=== PATIENT | male | born 1990 | race Two or more races ===

== ENCOUNTER 2017-06-14 02:10 | Emergency (ER) | payer SELFPAY ==
[2017-06-14 02:31] VITALS: BMI 33.5
[2017-06-14 02:33] VITALS: BP 161/69; PULSE 76; RESP 16; TEMP 98.7; O2SAT 100
--- NOTE | 2017-06-14 02:55 | ED PDOC ---
HPI: Psych/Substance Abuse Time Seen by Provider: 06/14/17 02:39 Chief Complaint (Nursing): Alcohol Ingestion Chief Complaint (Provider): ETOH History Per: Patient Additional Complaint(s): Patient is a 27 yo male, denies any PMH, was brought in for evaluation of unsteady gait after drinking alcohol. Pt denies any physical complaints. Past Medical History Reviewed: Nursing Documentation, Vital Signs Vital Signs: Last Vital Signs Temp 98.7 F 06/14/17 02:31 Pulse 76 06/14/17 02:31 Resp 16 06/14/17 02:31 BP 161/69 H 06/14/17 02:31 Pulse Ox 100 06/14/17 02:31 - Medical History PMH: No Chronic Diseases - Surgical History Surgical History: No Surg Hx - Family History Family History: States: No Known Family Hx - Living Arrangements Living Arrangements: With Family - Social History Current smoker - smoking cessation education provided: No Alcohol: Social Drugs: Denies - Allergies Allergies/Adverse Reactions: Allergies Allergy/AdvReac Type Severity Reaction Status Date / Time No Known Allergies Allergy Verified 06/14/17 02:30 Review of Systems ROS Statement: Except As Marked, All Systems Reviewed And Found Negative Physical Exam - Reviewed Nursing Documentation Reviewed: Yes Vital Signs Reviewed: Yes - Physical Exam Appears: Positive for: Well, Non-toxic, No Acute Distress Head Exam: Positive for: ATRAUMATIC, NORMAL INSPECTION, NORMOCEPHALIC Skin: Positive for: Normal Color, Warm, DRY Eye Exam: Positive for: EOMI, Normal appearance, PERRL ENT: Positive for: Normal ENT Inspection Neck: Positive for: Normal, Painless ROM Cardiovascular/Chest: Positive for: Regular Rate, Rhythm Respiratory: Positive for: CNT, Normal Breath Sounds Gastrointestinal/Abdominal: Positive for: Normal Exam, Bowel Sounds, Soft Back: Positive for: Normal Inspection Extremity: Positive for: Normal ROM Neurologic/Psych: Positive for: Alert, Oriented - ECG O2 Sat by Pulse Oximetry: 100 Medical Decision Making Medical Decision Making: ETOH 279 Pt monitored in ED overnight. Arousable to verbal stimuli. Stable for discharge in am Disposition - Clinical Impression Clinical Impression: Alcohol ingestion - Patient ED Disposition Is Patient to be Admitted: No - Disposition Disposition: Routine/Home Disposition Time: 05:20 Condition: STABLE Forms: [employer] ([place]ese) - POA Present On Arrival: None
== END 2017-06-14 05:28 | disposition home or self-care (01) ==
LOC: H.ER 02:10
DX: F10.129 Alcohol abuse with intoxication, unspecified (principal)
CPT/HCPCS: 99282; G0480